=== PATIENT | female | born 1965 | race Caucasian/White ===

== ENCOUNTER 2019-12-12 12:20 | Outpatient (CLI) | payer MEDICARE, SELFPAY ==
--- NOTE | ~2019-12-12 | MMUS_ITS ---
EXAMINATION: MM diagnostic estuardo BI w jefferson, US breast BI limited HISTORY: Bilateral breast lumps TECHNIQUE: Additional 3-D tomosynthesis images of the breasts were performed and synthetic 2-D images were generated. CAD analysis was submitted and interpreted. High resolution bilateral breast ultraso und was performed. COMPARISON: Ultrasound dated 11/03/2006 FINDINGS: MAMMOGRAPHIC FINDINGS: Breast composed of scattered areas of fibroglandular density. There are no suspicious masses, calcifi cations or architectural distortion in either breast to suggest malignancy. ULTRASOUND: High-resolution bilateral breast ultrasound: There is a 2.2 cm normal-appearing lymph node in the left axilla. Otherwise, bilateral breasts are c omposed of normal heterogeneous echotexture without focal mass. IMPRESSION: 1. No mammographic or sonographic evidence for malignancy in either breast. 2. Routine yearly screening mammogram and regular clinical breast examination are recommended. BI-RADS Category 1: Negative Reviewed, dictated and finalized at location A. IMPRESSION: 1. No mammographic or sonographic evidence for malignancy in either breast. 2. Routine yearly screening mammogram and regular clinical breast examination a re recommended. BI-RADS Category 1: Negative
--- NOTE | ~2019-12-12 | DEXA_ITS ---
Bone Density Report Name: Krys Cortes Age: 54 Sex: Female Ethnicity: White Date of : 1965 Indication: postmenopausal; height loss; hysterectomy; Referring Provider: Breana, Sagrario Kenny Study: Bone densitometry was performed. Exam Date: December 12, 2019 Accession number: [id number] Bone Density: Region BMD T-score Z-score Classification AP Spine (L1-L4) 0.959 -0.8 0.3 Normal Femoral Neck (Left) 0.785 -0.6 0.5 Normal Total Hip (Left) 0.941 0.0 0.7 Normal Total Hip Bilateral Avg 0.910 -0.3 0.4 Normal Femoral Neck (Right) 0.792 -0.5 0.6 Normal Total Hip (Right) 0.878 -0.5 0.2 Normal World Health Organization criteria for BMD impression classify patients as: Normal (T-score at or above -1.0), Osteopenia (T-score between -1.0 and -2.5), or Osteoporosis (T-score at or below -2.5). 10-year Fracture Risk: FRAX not reported because: All T-scores for Spine Total, Hip Total, Femoral Neck at or above -1.0 Clinical Information Provided by Patient: Smokes Has the following medical conditions: Hysterectomy Patient maximum height was 64 Menopause Age: 48 No regular weight bearing exercise Does not regularly consume dairy products Drinks caffeinated beverages Onset of menses at age 15 Number of children 1 Impression: The patient has normal bone mass. The patient has risk factors, including: smoking. Discussion: BONE DENSITY IS ABOVE THE MINIMUM DESIRABLE LEVEL AT ALL SKELETAL SITES TESTED. This patient?s bone mineral density is above the minimum desirable level (T-score -1.0 or better) at all sites measured. The patient should follow a healthful lifestyle (good nutrition with adequate calcium and vitamin D, and appropriate weight-bearing exercise). Follow-Up: Consider repeating this study in 5 years or sooner if there is some new clinical indication. Reported by: BAR on 12/12/2019 1:19:00 PM. Reviewed, dictated and finalized at location ACatarina EDMONDSON
== END 2019-12-12 12:21 | disposition home or self-care (01) ==
LOC: ANHIMG 12:28
PROVIDERS: PCP Nurse Practitioner Family; Visit Provider Nurse Practitioner Family
DX: Z78.0 Asymptomatic menopausal state (principal); N63.10 Unspecified lump in the right breast, unspecified quadrant; N63.20 Unspecified lump in the left breast, unspecified quadrant; R92.8 Other abnormal and inconclusive findings on diagnostic imaging of breast
CPT/HCPCS: 76642; 77062; 77066; 77080; G0279

== ENCOUNTER 2020-10-20 09:32 | Outpatient (CLI) | payer MEDICARE, SELFPAY ==
--- NOTE | ~2020-10-20 | XR_ITS ---
EXAMINATION: XR barium swallow modified EXAM DATE: 10/20/2020 10:07 INDICATION: Dysphagia. TECHNIQUE: Modified barium esophagram was performed by myself to administered fluoroscopy, in conjun ction with speech pathologist who administered barium in varying consistencies as per speech patholog ist documentation. This was recorded on tape. The DAP for this procedure was 0.4 Gycm2. FINDINGS: Oral stage: Adequate function. Pharyngeal phase: Adequate function. Laryngeal penetration: None. Aspiration: None. Laryngeal sensitivity: Present. IMPRESSION: Normal modified esophagram exam. Please refer to speech pathologist findings and specifi c feeding recommendations. Reviewed, dictated and finalized at location A. IMPRESSION: Normal modified esophagram exam. Please refer to speech pathologis t findings and specific feeding recommendations.
--- NOTE | 2020-10-20 16:46 | STOPEVAL ---
MODIFIED BARIUM SWALLOW EVALUATION: Thank you for referring Krys Cortes to [facility].? Attending Provider: Naman Brown, FAX#: [phone] *ST Outpatient Evaluation Outpatient Past Medical History Past Medical History Source of Past Medical History Patient Neurological History Hx Transient Ischemic Attacks (TIA) Yes: couldn't recall most recent Hx Other Neurological Disorders Yes: pituitary tumor partial removal x 10 years ago Gastrointestinal History Hx Hernia Yes Prior Level of Function Prior Swallow Level Prior Intake Method Oral Prior Diet Regular (Level 7 Diet) Prior Liquid Consistency Thin (Level 0 Diet) Pain Assessment Timing of Pain Assessment Timing of Pain Assessment Assessment Self Report Self Report Pain Level 0 Pain Score Pain Score 0: Self Report Modified Barium Swallow Evaluation Recent Swallowing History Reports Dysphagia Yes: It's hard to swallow & I get choked Onset of Dysphagia pt was unable to state when dysphagia started History of Dysphagia No History of Pneumonia No: pt denied Reported Difficult Consistencies Thin Liquids,Solids Intake Method Prior to Swallow Oral Evaluation Diet Prior to Swallow Evaluation Regular, Level 7 Liquid Consistency Prior to Swallow Thin (0) Evaluation Consistency Solid Consistency Method of Presentation Spoon Oral Preparatory Symptoms None Oral Phase Symptoms None Pharyngeal Phase Symptoms None Severity of Vallecular Residue None - 0% No Residue Severity of Pyriform Sinus Residue None - 0% No Residue 8 Point Laryngeal Penetration-Aspiration Material Does Not Enter Airway Scale Cervical/Esophageal Phase Comments no backflow observed Mixed Consistency Method of Presentation Spoon Oral Preparatory Symptoms None Oral Phase Symptoms None Pharyngeal Phase Symptoms None Severity of Vallecular Residue None - 0% No Residue Severity of Pyriform Sinus Residue None - 0% No Residue 8 Point Laryngeal Penetration-Aspiration Material Does Not Enter Airway Scale Cervical/Esophageal Phase Comments no backflow observed Pureed Consistency Method of Presentation Spoon Oral Preparatory Symptoms None Oral Phase Symptoms None Pharyngeal Phase Symptoms None Severity of Vallecular Residue None - 0% No Residue Severity of Pyriform Sinus Residue None - 0% No Residue 8 Point Laryngeal Penetration-Aspiration Material Does Not Enter Airway Scale Cervical/Esophageal Phase Comments no backflow observed Thin Uncontrolled 2 Method of Presentation Straw Oral Preparatory Symptom
== END 2020-10-20 09:33 | disposition home or self-care (01) ==
LOC: ANHIMG 09:36
PROVIDERS: PCP Nurse Practitioner Family; Visit Provider Otolaryngology
DX: R13.10 Dysphagia, unspecified (principal)
CPT/HCPCS: 92611

== ENCOUNTER 2021-01-26 12:39 | Outpatient (CLI) | payer MEDICARE, SELFPAY ==
--- NOTE | ~2021-01-26 | MM_ITS ---
EXAMINATION: MM diagnostic estuardo BI w jefferson HISTORY: Left axillary lump TECHNIQUE: ML, MLO and cc 3-D tomosynthesis images of both breasts were performed and synthetic 2-D i mages were generated. Cone compression view of left axilla. CAD analysis was submitted and interprete d. COMPARISON: 12/12/2019 bilateral diagnostic mammography and bilateral breast ultrasound examination BREAST PARENCHYMAL COMPOSITION: The breasts are almost entirely fatty. FINDINGS: Stable 4 mm circumscribed opacity in the lower outer right breast. Stable bilateral axillary lymph nodes. No suspicious mass or architectural distortion, malignant calcification, skin thickening or retractio n of either breast is evident. IMPRESSION: 1. Benign findings; no mammographic evidence of malignancy 2. Routine mammographic screening is recommended BI-RADS Category 2: Benign finding(s). Reviewed, dictated and finalized at location A.
== END 2021-01-26 12:40 | disposition home or self-care (01) ==
LOC: ANHIMG 12:41
PROVIDERS: PCP Nurse Practitioner Family; Visit Provider Nurse Practitioner Family
DX: N63.20 Unspecified lump in the left breast, unspecified quadrant (principal); R92.2 Inconclusive mammogram
CPT/HCPCS: 77062; 77066; G0279